=== PATIENT | female | born 1990 | race Caucasian/White ===

== ENCOUNTER 2017-05-24 17:06 | Emergency (ER) | payer OTHER ==
[2017-05-24] MEDS: DIPHTH,PERTUSS(ACELL),TET TOX 0.5 ML DISP.SYRIN. VAX IM (18:09)
[2017-05-24] MEDS: LIDOCAINE 1% Multi-Dose 20 ML VIAL. ID (18:10)
[2017-05-24 18:51] LABS: NEG OBC UR NEG; POS OBC UR POS; U PREG PATIENT NEGATIVE (NEG)
== END 2017-05-24 21:16 | disposition home or self-care (01) ==
LOC: ER 17:06
DX: S01.81XA Laceration without foreign body of other part of head, initial encounter (principal); W55.12XA Struck by horse, initial encounter; Y93.89 Activity, other specified; Y99.8 Other external cause status; Y92.89 Other specified places as the place of occurrence of the external cause
CPT/HCPCS: 12013; 70450; 81025; 90471; 90715; 99285-25